=== PATIENT | female | born 1945 | race Caucasian/White ===

== ENCOUNTER → 2017-11-05 | Outpatient (CLI) | payer OTHER, MEDICARE | LOC: CIMAGING 11:25 | PROVIDERS: ATTEND Internal Medicine | DX: Z12.31 Encounter for screening mammogram for malignant neoplasm of breast (principal) | CPT/HCPCS: G0202 ==

== ENCOUNTER 2018-10-30 10:35 | Emergency (ER) | payer OTHER, MEDICARE ==
[2018-10-30 10:46] VITALS: BP 151/86
--- NOTE | 2018-10-30 10:55 | EDPHY ---
H & P Stated Complaint: sinus congestion, cough, runny nose since Saturday Time Seen by Provider: 10/30/18 10:49 HPI/ROS: CHIEF COMPLAINT: Sinusitis HISTORY OF PRESENT ILLNESS: The patient is a 73-year-old female who was worried about sinusitis. She states that for the last 5 days she has had sinus congestion and pressure. Minimal drainage. No sore throat. No fevers. She states that she has had similar episodes in the past that have resolved with antibiotics. She is here requesting antibiotics. No shortness of breath or chest pain. Occasional tickle cough. Severity: Moderate Modifying factors: Moderate improvement with dextromethorphan REVIEW OF SYSTEMS: Constitutional: denies: chills, fever, recent illness, recent injury EENTM: See HPI Respiratory: See HPI Cardiac: denies: chest pain, irregular heart rate, lightheadedness, palpitations Gastrointestinal/Abdominal: denies: abdominal pain, diarrhea, nausea, vomiting, blood streaked stools Genitourinary: denies: dysuria, frequency, hematuria, pain Musculoskeletal: denies: joint pain, muscle pain Skin: denies: lesions, rash, jaundice, bruising Neurological: denies: headache, numbness, paresthesia, tingling, dizziness, weakness Hematologic/Lymphatic: denies: blood clots, easy bleeding, easy bruising Immunologic/allergic: denies: HIV/AIDS, transplant 10 systems reviewed and negative except as noted EXAM: GENERAL: Well-appearing, well-nourished and in no acute distress. HEAD: Atraumatic, normocephalic. EYES: Pupils equal round and reactive to light, extraocular movements intact, sclera anicteric, conjunctiva are normal. ENT: Hearing aids in place, nares patent, tender sinuses, oropharynx clear without exudates. Moist mucous membranes. NECK: Normal range of motion, supple without lymphadenopathy or JVD. LUNGS: Breath sounds clear to auscultation bilaterally and equal. No wheezes rales or rhonchi. HEART: Regular rate and rhythm without murmurs, rubs or gallops. ABDOMEN: Soft, nontender, normoactive bowel sounds. No guarding, no rebound. No masses appreciated. BACK: No CVA tenderness, no spinal tenderness, step-offs or deformities EXTREMITIES: Normal range of motion, no pitting or edema. No clubbing or cyanosis. NEUROLOGICAL: Cranial nerves II through XII grossly intact. Normal speech, normal gait. 5/5 strength, normal movement in all extremities, normal sensation , normal reflexes PSYCH: Normal mood, normal affect. SKIN: Warm, dry, normal turgor, no visible rashes or lesions. Source: Patient Exam Limitations: No limitations - Personal History Current Tetanus Diphtheria and Acellular Pertussis (TDAP): Yes Tetanus Vaccine Date: < 10 years - Medical/Surgical History Hx Asthma: No Hx Chronic Respiratory Disease: No Hx Diabetes: No Hx Cardiac Disease: No Hx Renal Disease: No Hx Cirrhosis: No Hx Alcoholism: No Hx HIV/AIDS: No Hx Splenectomy or Spleen Trauma: No Other PMH: HTN. hysterectomy - Social History Smoking Status: Never smoked Alcohol Use: Sober Drug Use: None Constitutional: Initial Vital Signs Temperature (C) 37.1 C 10/30/18 10:42 Heart Rate 89 10/30/18 10:42 Respiratory Rate 16 10/30/18 10:42 Blood Pressure 151/86 H 10/30/18 10:42 O2 Sat (%) 93 10/30/18 10:42 O2 Delivery Mode Room Air Allergies/Adverse Reactions: No Known Allergies Allergy (Verified 10/30/18 10:46) Home Medications: Medication Instructions Recorded Alendronate Sodium [Fosamax 70 MG 70 mg PO MO@0700 08/30/16 (*)] Calcium Carbonate/Vitamin D3 08/30/16 [Calcium 600 + Vit D 400 Softgl] Cholecalciferol Vit D3 [Vitamin D3 1,000 units PO DAILY 08/30/16 (*)] Multivitamin [Multi-Day Vitamins] 1 each PO 08/30/16 amLODIPine BESYLATE [Amlodipine 2.5 mg PO 08/30/16 Besylate] Azithromycin [Zithromax] 250 mg PO DAILY #6 tab 10/30/18 Medical Decision Making ED Course/Re-evaluation: We discussed the likelihood that this is viral rather than bacterial. The patient states that she has had experience the past it is always improved with antibiotics. She is requesting a prescription. We discussed the possible side effects. Will give her a prescription for azithromycin. She is happy with this and declines further workup or testing. Differential Diagnosis: Partial list of the Differential diagnosis considered include but were not limited to; sinusitis, upper respiratory tract infection, influenza and although unlikely based on the history and physical exam, I also considered meningitis, abscess, pneumonia, sepsis. I discussed these differential diagnoses and the plan with the patient as well as the usual and expected course. The patient understands that the diagnosis is provisional and that in medicine we are not always correct and that further workup is often warranted. Usual and customary warnings were given. All of the patient's questions were answered. The patient was instructed to return to the emergency department should the symptoms at all worsen or return, otherwise to followup with the physician as we discussed. Departure - Departure Disposition: Home, Routine, Self-Care Clinical Impression: Sinusitis Qualifiers: Sinusitis location: maxillary Chronicity: acute Recurrence: non-recurrent Qualified Code(s): J01.00 - Acute maxillary sinusitis, unspecified Condition: Fair Instructions: Azithromycin (By mouth), Sinusitis (ED) Referrals: Sasha Rosa MD [Primary Care Provider] - 2-3 days, if not improved Prescriptions: Azithromycin [Zithromax] 250 mg PO DAILY #6 tab
== END 2018-10-30 11:17 | disposition home or self-care (01) ==
LOC: CED 10:35
DX: J01.00 Acute maxillary sinusitis, unspecified (principal); I10 Essential (primary) hypertension

== ENCOUNTER → 2018-12-08 | Outpatient (CLI) | payer OTHER, MEDICARE | LOC: CIMAGING 10:50 | PROVIDERS: ATTEND Internal Medicine | DX: Z12.31 Encounter for screening mammogram for malignant neoplasm of breast (principal) ==

== ENCOUNTER → 2018-12-22 | Outpatient (CLI) | payer OTHER, MEDICARE | LOC: FIMAGING 11:02 | PROVIDERS: ATTEND Internal Medicine | DX: M85.89 Other specified disorders of bone density and structure, multiple sites (principal) ==